=== PATIENT | male | born 1970 | race Caucasian/White ===

== ENCOUNTER → 2021-01-28 10:34 | Outpatient (CLI) | payer MEDICARE, OTHER, SELFPAY | PROVIDERS: PCP Internal Medicine; Referring Provider Podiatrist; Visit Provider Family Medicine | DX: G90.09 Other idiopathic peripheral autonomic neuropathy (principal); L97.516 Non-pressure chronic ulcer of other part of right foot with bone involvement without evidence of necrosis; L08.9 Local infection of the skin and subcutaneous tissue, unspecified; M20.11 Hallux valgus (acquired), right foot; M21.611 Bunion of right foot; M19.071 Primary osteoarthritis, right ankle and foot; M20.41 Other hammer toe(s) (acquired), right foot; Z79.899 Other long term (current) drug therapy; Z94.1 Heart transplant status; Z94.0 Kidney transplant status | CPT/HCPCS: 36415; 73630; 80053; 85025; 85651; 86140; 87070; 87075; 87077; 87147; 87186; 87205; 97597; 99213; 99214 ==

== ENCOUNTER → 2021-01-28 11:44 | Outpatient (CLI) | payer MEDICARE, OTHER, SELFPAY ==
--- NOTE | 2021-01-28 | DI.RAD.S_ITS ---
PROCEDURE: XR FOOT RT MIN 3V INDICATIONS: eval osteo r 1st IPJ TECHNIQUE: 3 views of the foot were acquired. COMPARISON: None. FINDINGS: Bones: No fractures or dislocations. No suspicious bony lesions. Moderate hallux valgus metatarsus prima varus alignment and medial bunion. Moderate 1st MTP and diffuse interphalangeal joint space narrowing with periarticular osteophyte formation. Mild diffuse joint narrowing within the midfoot with dorsal osteophytosis. Multiple hammertoe deformities. Soft tissues: No tibiotalar joint effusion. Achilles tendon appears normal. Vascular calcifications indicate atherosclerosis. IMPRESSION: 1. Hallux valgus alignment and medial bunion. 2. Midfoot and forefoot joint degeneration. 3. Multiple hammertoe deformities. Dictated by: Jose FAUST Interpreted: Jose Pastrana MD on 01/28/2021 at 14:13 Transcribed by: ORLANDO on 01/28/2021 at 14:14 Approved by: Jose Pastrana M.D. on 01/28/2021 at 15:38
[2021-01-28 12:47] LABS: Add Manual Diff / Slide Review NO; Basophils Absolute Auto 0 /uL (0-100); Basophils Percent Auto 0.8 % (0-2); Eosinophils Absolute Auto 200 /uL (0-450); Eosinophils Percent Auto 2.9 % (2-4); Hematocrit 42.9 % (41-53); Hemoglobin 14.8 g/dL (13.5-17.5); Lymphocytes Absolute Auto 1300 /uL (1100-4500); Lymphocytes Percent Auto 23.3 % (25-40); Mean Corpuscular HGB Conc 34.5 % (30-36); Mean Corpuscular Hemoglobin 32.8 PG (26-34); Mean Corpuscular Volume 95.2 fL (80-100); Monocytes Absolute Auto 700 /uL (0-900); Monocytes Percent Auto 13.6 % (3-14); Neutrophils Absolute Auto 3200 /uL (1500-7000); Neutrophils Percent Auto 59.4 % (50-75); Platelet Count 153 X10^3/uL (150-400); Red Cell Distribution Width 13.5 % (11.6-14.8); White Blood Cell Count 5.4 X10^3/uL (4.5-11.0)
[2021-01-28 13:35] LABS: Alanine Aminotransferase 24 IU/L (<50); Albumin 3.9 g/dL (3.5-5.0); Albumin Globulin Ratio 1.3 (1.0-2.8); Alkaline Phosphatase 77 U/L (38-126); Aspartate Aminotransferase 37 IU/L (17-59); BUN Creatinine Ratio 22.9 (6-22); Bilirubin Total 0.7 mg/dL (0.2-1.3); Blood Urea Nitrogen 24 mg/dL (9-20); C-Reactive Protein Quant < 0.5 mg/dL (<1.0); Calcium 11.1 mg/dL (8.4-10.2); Carbon Dioxide 26 mmol/L (22-32); Chloride 108 mmol/L (98-107); Estimated Glomerular Filt Rate > 60.0 mL/min (>60); Globulin 3.1 g/dL (1.7-4.1); Glucose 102 mg/dL (70-100); HEMOLYSIS 17 (0-50); Potassium 4.9 mmol/L (3.4-5.1); Sodium 138 mmol/L (137-145)
[2021-01-28 13:38] LABS: Erythrocyte Sedimentation Rate 2 MM/HR (0-15)
== END ==
PROVIDERS: PCP Podiatrist; Referring Provider Family Medicine; Visit Provider Family Medicine
DX: L97.516 Non-pressure chronic ulcer of other part of right foot with bone involvement without evidence of necrosis (principal); M20.11 Hallux valgus (acquired), right foot; M21.611 Bunion of right foot; M19.071 Primary osteoarthritis, right ankle and foot; M20.41 Other hammer toe(s) (acquired), right foot
CPT/HCPCS: 36415; 73630; 80053; 85025; 85651; 86140

== ENCOUNTER → 2021-02-05 14:43 | Outpatient (CLI) | payer MEDICARE, OTHER, SELFPAY | PROVIDERS: PCP Podiatrist; Referring Provider Podiatrist; Visit Provider Family Medicine | DX: G60.3 Idiopathic progressive neuropathy (principal); L97.512 Non-pressure chronic ulcer of other part of right foot with fat layer exposed; L08.9 Local infection of the skin and subcutaneous tissue, unspecified; Z79.899 Other long term (current) drug therapy; B95.7 Other staphylococcus as the cause of diseases classified elsewhere; Z94.1 Heart transplant status; Z94.0 Kidney transplant status; E83.52 Hypercalcemia | CPT/HCPCS: 97597; 99214 ==

== ENCOUNTER → 2021-02-20 09:16 | Outpatient (CLI) | payer MEDICARE, OTHER, SELFPAY | PROVIDERS: PCP Podiatrist; Referring Provider Podiatrist; Visit Provider Family Medicine | DX: G90.09 Other idiopathic peripheral autonomic neuropathy (principal); L97.512 Non-pressure chronic ulcer of other part of right foot with fat layer exposed; L08.9 Local infection of the skin and subcutaneous tissue, unspecified; D84.821 Immunodeficiency due to drugs | CPT/HCPCS: 11042; 36415; 80053; 85025; 85651; 86140; 99213 ==

== ENCOUNTER → 2021-02-20 09:46 | Outpatient (CLI) | payer MEDICARE, OTHER, SELFPAY ==
[2021-02-20 10:31] LABS: Add Manual Diff / Slide Review NO; Basophils Absolute Auto 0 /uL (0-100); Basophils Percent Auto 0.6 % (0-2); Eosinophils Absolute Auto 100 /uL (0-450); Eosinophils Percent Auto 1.7 % (2-4); Hematocrit 44.3 % (41-53); Hemoglobin 14.6 g/dL (13.5-17.5); Lymphocytes Absolute Auto 1200 /uL (1100-4500); Lymphocytes Percent Auto 20.7 % (25-40); Mean Corpuscular Hemoglobin 31.4 PG (26-34); Mean Corpuscular Volume 95.2 fL (80-100); Monocytes Absolute Auto 600 /uL (0-900); Monocytes Percent Auto 10.9 % (3-14); Neutrophils Absolute Auto 3900 /uL (1500-7000); Neutrophils Percent Auto 66.1 % (50-75); Platelet Count 153 X10^3/uL (150-400); Red Blood Cell Count 4.65 X10^6/uL (4.5-5.9); Red Cell Distribution Width 13.3 % (11.6-14.8); White Blood Cell Count 5.9 X10^3/uL (4.5-11.0)
[2021-02-20 10:46] LABS: Erythrocyte Sedimentation Rate 2 MM/HR (0-15)
[2021-02-20 11:31] LABS: Alanine Aminotransferase 29 IU/L (<50); Albumin Globulin Ratio 1.5 (1.0-2.8); Alkaline Phosphatase 101 U/L (38-126); Aspartate Aminotransferase 34 IU/L (17-59); BUN Creatinine Ratio 25.7 (6-22); Bilirubin Total 0.7 mg/dL (0.2-1.3); Blood Urea Nitrogen 27 mg/dL (9-20); C-Reactive Protein Quant < 0.5 mg/dL (<1.0); Calcium 10.9 mg/dL (8.4-10.2); Carbon Dioxide 26 mmol/L (22-32); Chloride 109 mmol/L (98-107); Estimated Glomerular Filt Rate > 60.0 mL/min (>60); Globulin 2.7 g/dL (1.7-4.1); Glucose 94 mg/dL (70-100); HEMOLYSIS < 15 (0-50); Potassium 4.7 mmol/L (3.4-5.1); Sodium 139 mmol/L (137-145); Total Protein 6.7 g/dL (6.3-8.2)
== END ==
PROVIDERS: PCP Podiatrist; Referring Provider Family Medicine; Visit Provider Family Medicine
DX: E83.52 Hypercalcemia (principal); L08.9 Local infection of the skin and subcutaneous tissue, unspecified
CPT/HCPCS: 36415; 80053; 85025; 85651; 86140

== ENCOUNTER → 2021-03-06 11:11 | Outpatient (CLI) | payer MEDICARE, OTHER, SELFPAY ==
--- NOTE | 2021-03-06 | DI.RAD.S_ITS ---
PROCEDURE: XR TOE RT MIN 2V INDICATIONS: non pressure chronic ulcer TECHNIQUE: 3 views of the 1st toe(s) acquired. COMPARISON: [facility], CR, XR FOOT RT MIN 3V, 01/28/2021, 12:03. FINDINGS: Bones: No fractures or dislocations. Subtle bony erosion at the base of the 1st distal phalanx. Mild bunion with hallux valgus and metatarsus adductus. Mild degenerative joint disease in the ankle and foot. Soft tissues: Severe atherosclerotic calcifications. IMPRESSION: 1. Subtle bony erosion at the base of the 1st distal phalanx suspicious for osteomyelitis. 2. Mild degenerative joint disease. Dictated by: Dima Hickman M.D. on 03/06/2021 at 17:53 Approved by: Dima Hickman M.D. on 03/06/2021 at 17:56
== END ==
PROVIDERS: PCP Podiatrist; Referring Provider Family Medicine; Visit Provider Family Medicine
DX: L97.512 Non-pressure chronic ulcer of other part of right foot with fat layer exposed (principal); M19.071 Primary osteoarthritis, right ankle and foot
CPT/HCPCS: 73660; 99214

== ENCOUNTER → 2021-03-06 13:06 | Outpatient (CLI) | payer MEDICARE, OTHER, SELFPAY | PROVIDERS: PCP Podiatrist; Referring Provider Podiatrist; Visit Provider Family Medicine | DX: G90.09 Other idiopathic peripheral autonomic neuropathy (principal); L97.516 Non-pressure chronic ulcer of other part of right foot with bone involvement without evidence of necrosis; L08.9 Local infection of the skin and subcutaneous tissue, unspecified; D84.821 Immunodeficiency due to drugs; R60.0 Localized edema | CPT/HCPCS: 99214 ==

== ENCOUNTER → 2021-03-20 10:33 | Outpatient (CLI) | payer MEDICARE, OTHER, SELFPAY | PROVIDERS: PCP Podiatrist; Referring Provider Podiatrist; Visit Provider Family Medicine | DX: G90.09 Other idiopathic peripheral autonomic neuropathy (principal); L97.516 Non-pressure chronic ulcer of other part of right foot with bone involvement without evidence of necrosis; M86.172 Other acute osteomyelitis, left ankle and foot; Z79.899 Other long term (current) drug therapy; Z79.2 Long term (current) use of antibiotics; D84.821 Immunodeficiency due to drugs | CPT/HCPCS: 97597; 99214 ==

== ENCOUNTER → 2022-05-04 09:41 | Outpatient (CLI) | payer MEDICARE, OTHER, SELFPAY ==
[2022-05-04 11:14] LABS: Add Manual Diff / Slide Review NO; Basophils Absolute Auto 0 /uL (0-100); Basophils Percent Auto 0.7 % (0-2); Eosinophils Absolute Auto 200 /uL (0-450); Eosinophils Percent Auto 3.1 % (2-4); Hematocrit 42.1 % (41-53); Hemoglobin 14.3 g/dL (13.5-17.5); Lymphocytes Absolute Auto 1000 /uL (1100-4500); Lymphocytes Percent Auto 17.5 % (25-40); Mean Corpuscular HGB Conc 33.9 % (30-36); Mean Corpuscular Hemoglobin 31.7 PG (26-34); Mean Corpuscular Volume 93.6 fL (80-100); Monocytes Absolute Auto 600 /uL (0-900); Monocytes Percent Auto 10.9 % (3-14); Neutrophils Absolute Auto 4000 /uL (1500-7000); Neutrophils Percent Auto 67.8 % (50-75); Platelet Count 138 X10^3/uL (150-400); White Blood Cell Count 5.8 X10^3/uL (4.5-11.0)
[2022-05-04 11:35] LABS: BUN Creatinine Ratio 18.8 (6-22); Blood Urea Nitrogen 18 mg/dL (9-20); Calcium 9.9 mg/dL (8.4-10.2); Carbon Dioxide 23 mmol/L (22-32); Chloride 107 mmol/L (98-107); Estimated Glomerular Filt Rate > 60 mL/min (>60); Glucose 118 mg/dL (70-100); HEMOLYSIS < 15 (0-50); Potassium 4.4 mmol/L (3.4-5.1); Sodium 138 mmol/L (137-145)
[2022-05-05 09:36] LABS: Tacrolimus 7.7 ng/mL (2.0-20.0)
[2022-05-12 14:38] LABS: Mycophenolic Acid 0.6 ug/mL (1.0-3.5); Mycophenolic Acid Glucuronide 21 ug/mL (15-125)
[2022-05-20 06:16] LABS: Testosterone Total 258.9 ng/dL (264.0-916.0)
[2022-06-18 06:43] LABS: Percent Free Testosterone 2.83 % (1.50-4.20); Testosterone Free 5.69 ng/dL (5.00-21.00); Testosterone Total 200.9 ng/dL (264.0-916.0)
== END ==
PROVIDERS: PCP Family Medicine; Referring Provider Internal Medicine Cardiovascular Disease; Visit Provider Internal Medicine Cardiovascular Disease
DX: N52.9 Male erectile dysfunction, unspecified (principal); Z94.1 Heart transplant status
CPT/HCPCS: 36415; 80048; 80180; 80197; 84402; 84403; 85025

== ENCOUNTER → 2022-09-12 09:53 | Outpatient (CLI) | payer MEDICARE, OTHER, SELFPAY ==
[2022-09-24 19:36] LABS: Percent Free Testosterone 3.78 % (1.50-4.20); Testosterone Free 8.13 ng/dL (5.00-21.00); Testosterone Total 215.2 ng/dL (264.0-916.0)
== END ==
PROVIDERS: PCP Family Medicine; Referring Provider Family Medicine; Visit Provider Family Medicine
DX: R79.89 Other specified abnormal findings of blood chemistry (principal)
CPT/HCPCS: 36415; 84402; 84403

== ENCOUNTER → 2023-03-27 10:36 | Outpatient (CLI) | payer MEDICARE, MEDICAID, OTHER, SELFPAY ==
[2023-03-27 10:57] LABS: Add Manual Diff / Slide Review NO; Basophils Absolute Auto 0 /uL (0-100); Basophils Percent Auto 0.3 % (0-2); Eosinophils Absolute Auto 200 /uL (0-450); Eosinophils Percent Auto 3.7 % (2-4); Hematocrit 44.6 % (41-53); Hemoglobin 15.3 g/dL (13.5-17.5); Lymphocytes Absolute Auto 1200 /uL (1100-4500); Mean Corpuscular HGB Conc 34.3 % (30-36); Mean Corpuscular Hemoglobin 31.8 PG (26-34); Mean Corpuscular Volume 92.6 fL (80-100); Monocytes Absolute Auto 500 /uL (0-900); Neutrophils Absolute Auto 3200 /uL (1500-7000); Platelet Count 155 X10^3/uL (150-400); Red Blood Cell Count 4.81 X10^6/uL (4.5-5.9); Red Cell Distribution Width 13.5 % (11.6-14.8); White Blood Cell Count 5.1 X10^3/uL (4.5-11.0)
[2023-03-27 11:10] LABS: BUN Creatinine Ratio 17.6 (6-22); Blood Urea Nitrogen 18 mg/dL (9-20); Calcium 10.9 mg/dL (8.4-10.2); Carbon Dioxide 24 mmol/L (22-32); Chloride 106 mmol/L (98-107); Estimated Glomerular Filt Rate > 60 mL/min (>60); Glucose 154 mg/dL (70-100); HEMOLYSIS < 15 (0-50); Magnesium 1.8 mg/dL (1.6-2.3); Potassium 4.5 mmol/L (3.4-5.1); Sodium 137 mmol/L (137-145)
[2023-03-30 12:36] LABS: Mycophenolic Acid 0.6 ug/mL (1.0-3.5); Mycophenolic Acid Glucuronide 39 ug/mL (15-125)
[2023-04-05 10:43] LABS: Tacrolimus 4.2
== END ==
PROVIDERS: PCP Family Medicine; Referring Provider Internal Medicine Cardiovascular Disease; Visit Provider Internal Medicine Cardiovascular Disease
DX: Z94.1 Heart transplant status (principal)
CPT/HCPCS: 36415; 80048; 80180; 80197; 83735; 85025

== ENCOUNTER → 2024-01-15 08:31 | Outpatient (CLI) | payer OTHER, MEDICARE, SELFPAY ==
[2024-01-15 10:01] LABS: Albumin 4.2 g/dL (3.5-5.0); BUN Creatinine Ratio 20.2 (6-22); Blood Urea Nitrogen 20 mg/dL (9-20); Calcium 10.1 mg/dL (8.4-10.2); Carbon Dioxide 20 mmol/L (22-32); Chloride 109 mmol/L (98-107); Estimated Glomerular Filt Rate > 60 mL/min (>60); Glucose 139 mg/dL (70-100); HEMOLYSIS < 15 (0-50); Phosphorous 1.8 mg/dL (2.5-4.5); Potassium 4.9 mmol/L (3.4-5.1); Sodium 136 mmol/L (137-145)
== END ==
LOC: LAB 08:35
PROVIDERS: PCP Family Medicine; Referring Provider Hospitalist; Visit Provider Hospitalist
DX: E21.3 Hyperparathyroidism, unspecified (principal)
CPT/HCPCS: 36415; 80069; 83970

== ENCOUNTER → 2024-01-24 13:36 | Outpatient (CLI) | payer MEDICARE, OTHER, SELFPAY ==
[2024-01-24 19:44] LABS: Calcium 24 Hour Urine 189 mg/day (100-300); Calcium Urine Random 7.7 mg/dL; Collection Time Urine 24 Hours; Total Volume Urine 2450 mL
[2024-01-24 19:45] LABS: Collection Time Urine 24 Hours; Creatinine 24 Hour Urine 1942 mg/day (1000-2000); Creatinine Urine Random 79.28 mg/dL; Total Volume Urine 2450 mL
== END ==
PROVIDERS: PCP Family Medicine; Referring Provider Hospitalist; Visit Provider Hospitalist
DX: E21.3 Hyperparathyroidism, unspecified (principal)
CPT/HCPCS: 82340; 82570

== ENCOUNTER → 2025-04-14 11:17 | Outpatient (CLI) | payer MEDICARE, OTHER, SELFPAY ==
[2025-04-14 12:27] LABS: Hemoglobin A1C% w Est Avg Glu 7.1 % (4.0-6.0)
[2025-04-14 17:28] LABS: Microalbumi Creatinin Ratio Ur 26.0 ug/mg CR (<30)
== END ==
PROVIDERS: PCP Family Medicine; Referring Provider Hospitalist; Visit Provider Hospitalist
DX: E13.9 Other specified diabetes mellitus without complications (principal)
CPT/HCPCS: 36415; 82043; 82570; 83036